=== PATIENT | male | born 1995 | race Caucasian/White ===

== ENCOUNTER 2023-08-15 21:58 | Emergency (ER) | payer MEDICAID ==
[~2023-08-15] VITALS: Ht 185.4 cm; Wt 72.6 kg
[2023-08-15 22:19] VITALS: BP 133/99; TEMP 97.5; O2SAT 97
== END 2023-08-15 22:23 | disposition left against medical advice (07) ==
LOC: ER 22:00
DX: T40.411A Poisoning by fentanyl or fentanyl analogs, accidental (unintentional), initial encounter (principal); F17.200 Nicotine dependence, unspecified, uncomplicated; Y92.89 Other specified places as the place of occurrence of the external cause
CPT/HCPCS: A4606; A4663